=== PATIENT | female | born 2000 | race Caucasian/White ===

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

== ENCOUNTER → 2020-04-21 15:03 | Outpatient (CLI) | payer SELFPAY ==
[2020-04-26 20:05] LABS: QNTFERON TB Mitogen Value > 10.00 IU/mL (.); QNTFERON TB Nil Value 0.01 IU/mL (.); QNTFERON TB1+ Ag Value 0.02 IU/mL (.); QNTFERON TB2+ Ag Value 0.01 IU/mL (.)
[2020-04-27 00:39] LABS: QNTIFERON TB Positive Criteria Negative (Negative); V-Zoster IgG (Immunity) < 135 index (Immune >165)
== END ==
PROVIDERS: PCP Family Medicine; Visit Provider Family Medicine
DX: Z00.00 Encounter for general adult medical examination without abnormal findings (principal)
CPT/HCPCS: 36415; 86480; 86787

== ENCOUNTER → 2021-01-14 12:14 | Outpatient (CLI) | payer SELFPAY ==
[2021-01-14 17:13] LABS: Follicle Stimulating Hormone 7.5 mIU/mL; Luteinizing Hormone 13.4 mIU/mL; Prolactin 9.6 ng/mL
[2021-01-27 16:33] LABS: 17-Hydroxyprogesterone 60 ng/dL (.)
== END ==
PROVIDERS: PCP Family Medicine; Referring Provider Family Medicine; Visit Provider Family Medicine
DX: E28.2 Polycystic ovarian syndrome (principal); L68.0 Hirsutism
CPT/HCPCS: 36415; 82627; 83001; 83002; 83498; 84146; 84403; 84443; 82626

== ENCOUNTER → 2021-01-17 15:21 | Outpatient (CLI) | payer SELFPAY ==
--- NOTE | 2021-01-17 15:28 | US_ITS ---
STUDY: ULTRASOUND OF THE FEMALE PELVIS - COMPLETE REASON FOR EXAM: Female, 20 years old. Right ovarian cyst for follow-up. LMP: 01/01/2021. TECHNIQUE: Transabdominal TECHNICAL QUALITY: Adequate. COMPARISON: March 13, 2019. FINDINGS: The uterus is anteverted and is in a midline position. The uterus measures 6.5 x 2.9 x 2.6 cm. Normal uterine cervix. The endometrium measures 3 mm in thickness, and is hyperechoic. There is no demonstrated endometrial mass. There is no demonstrated myometrial mass. I.U.D. - The patient does not have an I.U.D. The right ovary is visualized. The right ovary measures 3.4 x 3.0 x 1.8 cm. Simple right ovarian cyst measuring 1.3 x 1.1 x 1.0 cm compatible with an incidental follicle. There is no visualized right adnexal mass or complex lesion. There is normal arterial and normal venous vascularity. Previously noted 4.8 cm complex right ovarian cyst has resolved. The left ovary is visualized. The left ovary measures 2.8 x 2.6 x 1.6 cm. There is no left ovarian cyst or ovarian mass. There is no visualized left adnexal mass or complex lesion. There is normal arterial and normal venous vascularity. There is no fluid in the cul-de-sac. The pre void volume of the bladder was 573 ml. Polycystic ovary disease: No. US/Pelvic (Non ) IMPRESSION: Normal female pelvis. Previously noted complex right ovarian cyst has resolved and requires no further evaluation. Electronically Signed: Adan De La Vega MD at 7:03 EDT , Service support ,
== END ==
PROVIDERS: PCP Family Medicine; Referring Provider Family Medicine; Visit Provider Family Medicine
DX: N83.201 Unspecified ovarian cyst, right side (principal)
CPT/HCPCS: 76856